=== PATIENT | female | born 1975 | race Caucasian/White ===

== ENCOUNTER 2023-10-27 23:24 | Emergency (ER) | payer OTHER ==
[~2023-10-27] VITALS: Ht 157.5 cm; Wt 68.9 kg
[2023-10-27 23:35] VITALS: BP 119/70; PULSE 70; RESP 17; TEMP 98; O2SAT 99
[2023-10-28] MEDS ORDERED: NAPR-54 PO (03:10)
[2023-10-28] MEDS ORDERED: TOBR5SOL38 LEFT EYE (03:10)
== END 2023-10-28 03:25 | disposition home or self-care (01) ==
LOC: MED 23:24
DX: H00.14 Chalazion left upper eyelid (principal); Z79.899 Other long term (current) drug therapy
CPT/HCPCS: 99283